=== PATIENT | female | born 2000 | race Caucasian/White ===

== ENCOUNTER 2018-05-10 09:59 | Emergency (ER) | payer OTHER ==
[2018-05-10] MEDS: KETOROLAC 60 MG INJ IM (10:57)
[2018-05-10 11:09] LABS: ADD UMIC YES; UR ASCORBIC ACID NEGATIVE (NEGATIVE); UR BILIRUBIN (Dip) NEGATIVE (NEGATIVE); UR BLOOD (Dip) 1+ mg/dL (NEGATIVE); UR CLARITY CLEAR (CLEAR); UR COLOR YELLOW (YELLOW); UR GLUCOSE (Dip) NEGATIVE (NEGATIVE); UR KETONES (Dip) NEGATIVE (NEGATIVE); UR LEUKOCYTE ESTERASE (Dip) NEGATIVE Leu/ul (NEGATIVE); UR MUCUS FEW /HPF (NONE SEEN); UR NITRITE (Dip) NEGATIVE (NEGATIVE); UR RBC 2 /HPF (0-5); UR SQUAMOUS EPITHELIAL CELL FEW /HPF (FEW); UR TOTAL PROTEIN (Dip) NEGATIVE (NEGATIVE); UR UROBILINOGEN (Dip) NEGATIVE (NEGATIVE); UR WBC 1 /HPF (0-5)
== END 2018-05-10 12:25 | disposition home or self-care (01) ==
LOC: FTE 09:59
DX: R10.30 Lower abdominal pain, unspecified (principal); R10.2 Pelvic and perineal pain
CPT/HCPCS: 76856; 81001; 81025; 82962; 96372; 99285-25

== ENCOUNTER 2018-08-09 02:14 | Emergency (ER) | payer OTHER ==
[2018-08-09 02:53] LABS: URINE BLOOD (Dip) POC 3+ (NEGATIVE); URINE GLUCOSE (Dip) POC Negative (NEGATIVE); URINE KETONES (Dip) POC 1+ (NEGATIVE); URINE LEUKOCYTE EST (Dip) POC 3+ (NEGATIVE); URINE NITRITE (Dip) POC Negative (NEGATIVE); URINE TOTAL PROTEIN POC 3+ (NEGATIVE)
[2018-08-09 02:53] LABS: URINE PH (Dip) POC 5.5 (5.0-8.5)
[2018-08-09] MEDS: ONDANSETRON (ODT) 4 MG TAB ODT (03:03)
[2018-08-09] MEDS: KETOROLAC 30 MG INJ IM (03:03)
[2018-08-09] MEDS: CEFTRIAXONE 1 GM INJ IM (03:20)
== END 2018-08-09 05:10 | disposition home or self-care (01) ==
LOC: FTE 02:14
DX: N39.0 Urinary tract infection, site not specified (principal); F17.210 Nicotine dependence, cigarettes, uncomplicated
CPT/HCPCS: 81003; 81025; 96372; 99284-25

== ENCOUNTER 2018-09-16 15:27 | Emergency (ER) | payer OTHER ==
[2018-09-16] MEDS: ONDANSETRON 4 MG INJ IV (18:19)
[2018-09-16] MEDS: SOD CHLORIDE 0.9% 1,000 ML IV (18:19)
[2018-09-16] MEDS: morphine 2 MG INJ IV (18:20)
[2018-09-16 19:29] LABS: ADD UMIC YES; UR ASCORBIC ACID NEGATIVE (NEGATIVE); UR BILIRUBIN (Dip) NEGATIVE (NEGATIVE); UR BLOOD (Dip) NEGATIVE (NEGATIVE); UR CLARITY CLEAR (CLEAR); UR COLOR COLORLESS (YELLOW); UR GLUCOSE (Dip) NEGATIVE (NEGATIVE); UR KETONES (Dip) NEGATIVE (NEGATIVE); UR LEUKOCYTE ESTERASE (Dip) TRACE Leu/ul (NEGATIVE); UR NITRITE (Dip) NEGATIVE (NEGATIVE); UR RBC 0 /HPF (0-5); UR SPECIFIC GRAVITY (Dip) 1.005 (1.003-1.030); UR TOTAL PROTEIN (Dip) NEGATIVE (NEGATIVE); UR UROBILINOGEN (Dip) NEGATIVE (NEGATIVE); UR WBC 3 /HPF (0-5)
[2018-09-16 19:35] LABS: UR SQUAMOUS EPITHELIAL CELL FEW /HPF (FEW)
== END 2018-09-16 20:07 | disposition home or self-care (01) ==
LOC: FTE 15:27
DX: N39.0 Urinary tract infection, site not specified (principal); Z87.891 Personal history of nicotine dependence
CPT/HCPCS: 36415; 76856; 81001; 81025; 82962; 96374; 96375; 99285-25

== ENCOUNTER 2018-10-31 14:33 | Emergency (ER) | payer OTHER ==
[2018-10-31] MEDS: KETOROLAC 30 MG INJ IM (16:23)
[2018-10-31] MEDS: ONDANSETRON (ODT) 4 MG TAB ODT (16:23)
[2018-10-31 16:44] LABS: ADD UMIC NO; UR ASCORBIC ACID NEGATIVE (NEGATIVE); UR BILIRUBIN (Dip) NEGATIVE (NEGATIVE); UR BLOOD (Dip) NEGATIVE (NEGATIVE); UR CLARITY CLEAR (CLEAR); UR COLOR YELLOW (YELLOW); UR GLUCOSE (Dip) NEGATIVE (NEGATIVE); UR KETONES (Dip) NEGATIVE (NEGATIVE); UR LEUKOCYTE ESTERASE (Dip) NEGATIVE Leu/ul (NEGATIVE); UR NITRITE (Dip) NEGATIVE (NEGATIVE); UR SPECIFIC GRAVITY (Dip) 1.021 (1.003-1.030); UR TOTAL PROTEIN (Dip) NEGATIVE (NEGATIVE); UR UROBILINOGEN (Dip) NEGATIVE (NEGATIVE)
== END 2018-10-31 17:23 | disposition home or self-care (01) ==
LOC: FTE 14:33
DX: R51 Headache (principal); R11.10 Vomiting, unspecified; Z87.891 Personal history of nicotine dependence
CPT/HCPCS: 81003; 81025; 96372; 99284-25

== ENCOUNTER 2019-01-27 01:53 | Emergency (ER) | payer MEDICAID ==
[2019-01-27] MEDS: ALBUTEROL 0.083% (NEB) 2.5 MG/3 ML AMP NEB (03:45)
[2019-01-27] MEDS: IPRATROPIUM (NEB) 0.5 MG/2.5 ML AMP NEB (03:45)
== END 2019-01-27 04:45 | disposition home or self-care (01) ==
LOC: FTE 01:53
DX: J45.990 Exercise induced bronchospasm (principal); G47.30 Sleep apnea, unspecified; Z87.891 Personal history of nicotine dependence
CPT/HCPCS: 94664; 99283-25

== ENCOUNTER 2019-02-24 21:00 | Emergency (ER) | payer MEDICAID ==
[2019-02-24] MEDS: DEXAMETHASONE 10 MG/ML 1 ML INJ IM (22:48)
[2019-02-24] MEDS: KETOROLAC 30 MG INJ IM (22:48)
[2019-02-24] MEDS: ONDANSETRON (ODT) 4 MG TAB ODT (23:09)
[2019-02-24] MEDS ORDERED: ONDANSETRON 4 MG TAB PO (23:30)
== END 2019-02-25 00:33 | disposition home or self-care (01) ==
LOC: FTE 02-25 00:33
DX: J02.9 Acute pharyngitis, unspecified (principal); F17.210 Nicotine dependence, cigarettes, uncomplicated; J45.909 Unspecified asthma, uncomplicated
CPT/HCPCS: 81025; 96372; 99284-25

== ENCOUNTER 2019-04-13 01:27 | Emergency (ER) | payer SELFPAY, OTHER ==
[2019-04-13] MEDS: SOD CHLORIDE 0.9% 1,000 ML IV (03:31)
[2019-04-13] MEDS: MECLIZINE 12.5 MG TAB PO (03:31)
[2019-04-13] MEDS: ONDANSETRON 4 MG INJ IV (03:31)
[2019-04-13 03:41] LABS: ADD MAN DIFF? NO
[2019-04-13 03:59] LABS: ALANINE AMINOTRANSFERASE 40 IU/L (13-69); ALBUMIN 4.3 g/dl (3.3-4.9); ALBUMIN/GLOBULIN RATIO 1.26; ALKALINE PHOSPHATASE 80 IU/L (42-121); ANION GAP 10 (5-13); ASPARTATE AMINO TRANSFERASE 24 IU/L (15-46); BILIRUBIN,INDIRECT 0.1 mg/dl (0-1.1); BILIRUBIN,TOTAL 0.1 mg/dl (0.2-1.3); BLOOD UREA NITROGEN 12 mg/dl (7-20); CALCIUM 9.7 mg/dl (8.4-10.2); CARBON DIOXIDE 28 mmol/L (21-31); CHLORIDE 102 mmol/L (97-110); CREATININE 0.76 mg/dl (0.44-1.00); Estimated GFR > 60 mL/min (>60); GLUCOSE 103 mg/dl (70-220); POTASSIUM 4.1 mmol/L (3.5-5.1); SODIUM 140 mmol/L (135-144); TOTAL PROTEIN 7.7 g/dl (6.1-8.1)
[2019-04-13 04:08] LABS: ADD UMIC NO; UR ASCORBIC ACID NEGATIVE (NEGATIVE); UR BACTERIA FEW /HPF (NONE SEEN); UR BILIRUBIN (Dip) NEGATIVE (NEGATIVE); UR BLOOD (Dip) NEGATIVE (NEGATIVE); UR CLARITY SLIGHTLY CLOUDY (CLEAR); UR COLOR YELLOW (YELLOW); UR GLUCOSE (Dip) NEGATIVE (NEGATIVE); UR KETONES (Dip) NEGATIVE (NEGATIVE); UR LEUKOCYTE ESTERASE (Dip) NEGATIVE Leu/ul (NEGATIVE); UR MUCUS FEW /HPF (NONE SEEN); UR NITRITE (Dip) NEGATIVE (NEGATIVE); UR RBC 2 /HPF (0-5); UR SPECIFIC GRAVITY (Dip) 1.025 (1.003-1.030); UR SQUAMOUS EPITHELIAL CELL MODERATE /HPF (FEW); UR TOTAL PROTEIN (Dip) NEGATIVE (NEGATIVE); UR UROBILINOGEN (Dip) NEGATIVE (NEGATIVE); UR WBC 3 /HPF (0-5)
[2019-04-13 04:12] LABS: WHITE BLOOD COUNT 7.1 10^3/ul (4.8-10.8)
[2019-04-13 04:12] LABS: BASOPHIL # 0.1 10^3/ul (0.0-0.1); BASOPHILS % 0.8 % (0.0-2.0); EOSINOPHILS # 0.1 10^3/ul (0.0-0.5); HEMATOCRIT 37.6 % (37.0-47.0); HEMOGLOBIN 12.3 g/dl (12.0-16.0); LYMPHOCYTES # 2.9 10^3/ul (0.8-2.9); LYMPHOCYTES % 41.2 % (15.0-51.0); MEAN CORPUSCULAR HEMOGLOBIN 30.3 pg (29.0-33.0); MEAN CORPUSCULAR HGB CONC 32.7 g/dl (32.0-37.0); MEAN CORPUSCULAR VOLUME 92.6 fl (82.0-101.0); MEAN PLATELET VOLUME 10.5 fl (7.4-10.4); MONOCYTE # 0.6 10^3/ul (0.3-0.9); NEUTROPHIL # 3.3 10^3/ul (1.6-7.5); NEUTROPHILS % 46.9 % (39.0-77.0); PLATELET COUNT 289 10^3/UL (140-415); RED BLOOD COUNT 4.06 10^6/ul (4.20-5.40); RED CELL DISTRIBUTION WIDTH 12.5 % (11.5-14.5)
== END 2019-04-13 04:45 | disposition home or self-care (01) ==
LOC: FTE 01:27
DX: R42 Dizziness and giddiness (principal); F17.210 Nicotine dependence, cigarettes, uncomplicated
CPT/HCPCS: 36415; 80053; 81001; 81003; 81025; 85025; 96374; 99285-25